=== PATIENT | male | born 2000 | race American Indian/Alaskan Native ===

== ENCOUNTER 2021-08-09 16:34 | Emergency (ER) | payer SELFPAY ==
[2021-08-09 20:34] VITALS: BP 116/68
[2021-08-09 23:56] LABS: Mucus,Urine 1+ /HPF
[2021-08-09 23:58] LABS: WBC,Urine > 182.0 /HPF (0.0-6.0)
[2021-08-10 00:07] LABS: Bilirubin,Urine Negative (Negative); Blood,Urine Large (Negative); Color,Urine Straw (Yellow)
[2021-08-10 00:08] LABS: Protein,Urine <30 mg dL mg/dL (Negative); Urobilinogen,Urine < 2.0 mg/dL (<2.0)
[2021-08-10] MEDS ORDERED: AZITHROMYCIN 250 MG TAB PO STA (03:46)
[2021-08-10] MEDS ORDERED: LIDOCAINE-MPF (1%) 10 MG/1 ML VIAL 5 ML INFILTRATI ONE (03:46)
--- NOTE | 2021-08-10 04:07 | Emergency Department Report ---
ED Male HPI - General Chief complaint: Urogenital-Male Stated complaint: HURTS WHEN URINATING Time Seen by Provider: 08/10/21 03:46 Source: patient Mode of arrival: Ambulatory Limitations: No Limitations - History of Present Illness MD Complaint: dysuria -: Gradual, days(s) (3) Location: penis Radiation: none Severity: mild Quality: burning Improves with: none Worsens with: urination new medication swelling, dysuria - Related Data Sexually active: Yes (Risky sexual behavior 1 week ago and now has symptoms of burning with urina) Previous Rx's Medication Instructions Recorded Last Taken Type DOXYCYCLINE Hyclate [Vibramycin 100 mg PO BID #20 capsule 08/10/21 Unknown Rx CAP] metroNIDAZOLE [Flagyl] 2,000 mg PO ONCE #4 tablet 08/10/21 Unknown Rx Allergies Allergy/AdvReac Type Severity Reaction Status Date / Time No Known Allergies Allergy Unverified 01/03/16 01:34 ED Review of Systems ROS: Stated complaint: HURTS WHEN URINATING Other details as noted in HPI Comment: All other systems reviewed and negative ED Past Medical Hx - Past Medical History Additional medical history: adhd, personality disorder - Social History Smoking Status: Current Some Day Smoker Substance Use Type: Alcohol, Marijuana - Medications Home Medications: Home Medications Medication Instructions Recorded Confirmed Last Taken Type DOXYCYCLINE Hyclate [Vibramycin 100 mg PO BID #20 capsule 08/10/21 Unknown Rx CAP] metroNIDAZOLE [Flagyl] 2,000 mg PO ONCE #4 tablet 08/10/21 Unknown Rx ED Physical Exam - General Limitations: No Limitations General appearance: alert, in no apparent distress - Head Head exam: Present: atraumatic, normocephalic - Eye Eye exam: Present: normal appearance, PERRL, EOMI Pupils: Present: normal accommodation - ENT ENT exam: Present: normal exam, normal orophraynx, mucous membranes moist, TM's normal bilaterally - Neck Neck exam: Present: normal inspection, full ROM - Respiratory Respiratory exam: Present: normal lung sounds bilaterally. Absent: respiratory distress, rales, rhonchi - Cardiovascular Cardiovascular Exam: Present: regular rate, normal rhythm. Absent: systolic murmur, diastolic murmur, rubs, gallop - GI/Abdominal GI/Abdominal exam: Present: soft, normal bowel sounds - Rectal Rectal exam: Present: deferred - Extremities Exam Extremities exam: Present: normal inspection, normal capillary refill - Back Exam Back exam: Present: normal inspection. Absent: CVA tenderness (R), CVA tenderness (L) - Neurological Exam Neurological exam: Present: alert, oriented X3, CN II-XII intact - Psychiatric Psychiatric exam: Present: normal affect, normal mood - Skin Skin exam: Present: warm, dry, intact, normal color. Absent: rash ED Course Vital Signs 08/09/21 19:57 Temperature 98.3 F Pulse Rate 46 L Respiratory 18 Rate Blood Pressure 116/68 O2 Sat by Pulse 99 Oximetry Critical care attestation.: If time is entered above; I have spent that time in minutes in the direct care of this critically ill patient, excluding procedure time. ED Disposition Clinical Impression: Possible exposure to STD, High risk sexual behavior, Dysuria, UTI (urinary tract infection) Disposition: HOME / SELF CARE / HOMELESS Is pt being admited?: No Does the pt Need Aspirin: No Condition: Stable Instructions: Urinalysis Test, Urinary Tract Infection, Adult, Antibiotic Medicine, Adult, Safe Sex Additional Instructions: You have been seen in the emergency department for urinary symptoms. Your evaluation included a urinalysis which did suggest symptoms are due to a urinary tract infection. Urinary tract infection may be secondary to an STD it is recommended she follow-up with the health department for definitive evaluation and testing. Please be sure to take the prescribed antibiotic for the full course of the medication as directed. Follow-up with your primary care provider or [facility] within 2 days you may return emerged department if you experience fevers 100.4 or greater, worsening or uncontrolled pain, vomiting, flank pain or for any other concerning symptoms Prescriptions: metroNIDAZOLE [Flagyl] 2,000 mg PO ONCE #4 tablet DOXYCYCLINE Hyclate [Vibramycin CAP] 100 mg PO BID #20 capsule Referrals: [facility] [Provider Group] - 3-5 Days [facility] [Outside] - 3-5 Days
== END 2021-08-10 04:40 | disposition home or self-care (01) ==
LOC: ED 16:34
DX: N39.0 Urinary tract infection, site not specified (principal); R30.0 Dysuria; Z20.2 Contact with and (suspected) exposure to infections with a predominantly sexual mode of transmission; Z72.51 High risk heterosexual behavior; F17.290 Nicotine dependence, other tobacco product, uncomplicated
CPT/HCPCS: 81001; 96372; 99283; J0696; J3490